=== PATIENT | male | born 1960 | race Asian ===

== ENCOUNTER 2019-10-07 18:01 | Observation (INO) | payer OTHER ==
[~2019-10-07] VITALS: Ht 182.9 cm; Wt 61.3 kg
[2019-10-07 18:17] VITALS: BP 133/95; TEMP 98.1
[2019-10-07] MEDS ORDERED: METO50TA27 PO (18:26)
[2019-10-07] MEDS ORDERED: AMLODIPINE BESYLATE PO (18:26)
[2019-10-07] MEDS ORDERED: OMEPRAZOLE40 MG PO (18:27)
[2019-10-07] MEDS ORDERED: GABA300C2 PO (18:28)
[2019-10-07] MEDS ORDERED: POTA10CA3 PO (18:28)
[2019-10-07 18:45] VITALS: BP 136/95
[2019-10-07 19:27] LABS: PLATELET COUNT 229 K/uL (142-355)
[2019-10-07 19:28] VITALS: BP 151/91
[2019-10-07 19:39] LABS: POTASSIUM 4.5 mmol/L (3.6-5.2)
[2019-10-07 20:00] VITALS: BP 153/96
[2019-10-07 21:00] VITALS: BP 134/89
[2019-10-07 21:57] VITALS: BP 138/89; TEMP 137.1; Ht 182.9 cm; Wt 61.3 kg
[2019-10-08] VITALS (7 sets, daily range): BP systolic 120–142; BP diastolic 79–88; TEMP 97.9–98.6
[2019-10-08 04:53] LABS: PLATELET COUNT 193 K/uL (142-355)
[2019-10-08 05:02] LABS: POTASSIUM 3.4 mmol/L (3.6-5.2)
[2019-10-09 04:00] VITALS: BP 114/77; TEMP 98.3
[2019-10-09 08:00] VITALS: BP 129/86; TEMP 98
--- NOTE | 2019-10-09 09:00 | NUR ---
PT'S DIET WAS ADVANCED TO REGULAR DIET. PT WAS CARRIED APPLE JUICE, CRACKERS, AND JELLO. PT WAS ALSO SERVED AND ATE BREAKFAST. NO C/O OF PAIN OR DISCOMFORT AFTER EATING. PT IS BEING DISCHARGED TO HOME. CALL LIGHT WITHIN REACH. WILL CONTINUE TO MONITOR
--- NOTE | 2019-10-09 10:00 | NUR ---
PT DISCHARGED TO HOME, AND TRANSPORTED VIA W/C TO VEHICLE, AND DRIVEN BY FRIEND. NO ACUTE DISTRESS NOTED.
== END 2019-10-09 09:49 | disposition home or self-care (01) ==
LOC: ED 18:01 → MED/SURG 21:14
PROVIDERS: Family Medicine; ADMIT Emergency Medicine Emergency Medical Services
DX: K85.20 Alcohol induced acute pancreatitis without necrosis or infection (principal); E87.6 Hypokalemia; D63.8 Anemia in other chronic diseases classified elsewhere; N40.0 Benign prostatic hyperplasia without lower urinary tract symptoms; K21.9 Gastro-esophageal reflux disease without esophagitis; I10 Essential (primary) hypertension; K86.0 Alcohol-induced chronic pancreatitis; K70.0 Alcoholic fatty liver; M87.851 Other osteonecrosis, right femur
CPT/HCPCS: 36415; 80053; 81000; 82150; 83690; 85027; 93005; 96360; 96365; 96366; 96375; 96376; 99220; 99284; G0378; J1885; J2175; J2405

== ENCOUNTER 2020-03-02 09:48 | Outpatient (CLI) | payer OTHER ==
[~2020-03-02 09:48] MED LIST: AMLODIPINE BESYLATE PO; GABA300C2 PO; METO50TA27 PO; OMEPRAZOLE40 MG PO; POTA10CA3 PO
== END 2020-03-02 20:09 | disposition home or self-care (01) ==
LOC: RAD 09:48
DX: M25.551 Pain in right hip (principal)

== ENCOUNTER 2020-03-20 10:18 | Outpatient (CLI) | payer OTHER | END 2020-03-20 22:05 | disposition home or self-care (01) | LOC: RAD 10:18 | DX: Z13.820 Encounter for screening for osteoporosis (principal) ==

== ENCOUNTER 2020-04-02 17:10 | Emergency (ER) | payer OTHER ==
[~2020-04-02] VITALS: Ht 182.9 cm; Wt 61.2 kg
[2020-04-02 18:57] LABS: PLATELET COUNT 160 K/uL (142-355)
[2020-04-02 18:59] LABS: POTASSIUM 3.2 mmol/L (3.6-5.2); SODIUM 140 mmol/L (136-145)
[2020-04-02 19:15] LABS: PARTIAL THROMBOPLASTIN TIME 26.5 SECONDS (24.5-33.6)
[2020-04-02 19:49] VITALS: BP 134/91; TEMP 98
== END 2020-04-02 19:54 | disposition home or self-care (01) ==
LOC: ED 17:10
PROVIDERS: Hospitalist
DX: Z03.818 Encounter for observation for suspected exposure to other biological agents ruled out (principal); J06.9 Acute upper respiratory infection, unspecified; E87.6 Hypokalemia; F17.210 Nicotine dependence, cigarettes, uncomplicated
CPT/HCPCS: 36415; 80053; 82550; 83880; 84484; 85027; 85610; 85730; 87502; 87635; 87651; 93005; 99283; U0002

== ENCOUNTER 2020-08-12 12:11 | Emergency (ER) | payer OTHER ==
[~2020-08-12] VITALS: Ht 182.9 cm; Wt 67.6 kg
[2020-08-12 12:14] VITALS: TEMP 98.5
[2020-08-12] MEDS ORDERED: CLOP75TA2 PO (13:00)
[2020-08-12] MEDS ORDERED: HYDR10TA47 PO (13:00)
[2020-08-12] MEDS ORDERED: NEURONTIN800 MG PO (13:01)
[2020-08-12] MEDS ORDERED: DULO60CA2 PO (13:01)
[2020-08-12] MEDS ORDERED: NUCYNTA ER150 MG (13:02)
[2020-08-12 13:15] LABS: PLATELET COUNT 250 K/uL (142-355)
[2020-08-12 13:21] LABS: POTASSIUM 3.3 mmol/L (3.6-5.2)
[2020-08-12 13:29] LABS: PARTIAL THROMBOPLASTIN TIME 24.7 SECONDS (24.5-33.6)
[2020-08-12 14:48] VITALS: BP 118/82
== END 2020-08-12 14:58 | disposition short-term general hospital (02) ==
LOC: ED 12:11
PROVIDERS: Emergency Medicine
DX: S72.145A Nondisplaced intertrochanteric fracture of left femur, initial encounter for closed fracture (principal); S42.255A Nondisplaced fracture of greater tuberosity of left humerus, initial encounter for closed fracture; W18.39XA Other fall on same level, initial encounter; Y92.098 Other place in other non-institutional residence as the place of occurrence of the external cause
CPT/HCPCS: 80053; 80320; 85027; 85610; 85730; 96374; 96375; 99284; J1885; J2175; J2405

== ENCOUNTER 2021-08-30 14:58 | Emergency (ER) | payer OTHER ==
[~2021-08-30] VITALS: Ht 182.9 cm; Wt 54.4 kg
[2021-08-30 14:58] VITALS: TEMP 97.9
[~2021-08-30 14:58] MED LIST changes: +CLOP75TA2 PO; +DULO60CA2 PO; +HYDR10TA47 PO; +NEURONTIN800 MG PO; +NUCYNTA ER150 MG
[2021-08-30 15:21] LABS: PLATELET COUNT 134 K/uL (142-355)
[2021-08-30 15:25] LABS: POTASSIUM 3.5 mmol/L (3.6-5.2)
[2021-08-30 15:30] LABS: PARTIAL THROMBOPLASTIN TIME 30.8 SECONDS (24.5-33.6)
[2021-08-30 18:28] VITALS: BP 101/66
== END 2021-08-30 19:03 | disposition home or self-care (01) ==
LOC: ED 14:58
PROVIDERS: Emergency Medicine
DX: M54.59 Other low back pain (principal); M79.604 Pain in right leg; R00.0 Tachycardia, unspecified; E86.0 Dehydration
CPT/HCPCS: 80053; 82550; 83880; 84484; 85007; 85027; 85610; 85730; 93005; 96360; 96375; 99284; J1885; J3490

== ENCOUNTER 2021-09-04 15:56 | Inpatient (IN) | payer OTHER ==
[~2021-09-04] VITALS: Ht 182.9 cm; Wt 67.8 kg
[2021-09-04] VITALS (10 sets, daily range): BP systolic 104–133; BP diastolic 77–88; TEMP 97.4
[2021-09-04 18:14] LABS: POTASSIUM 2.9 mmol/L (3.6-5.2)
[2021-09-04 18:27] LABS: PLATELET COUNT 70 K/uL (142-355)
[2021-09-04 18:51] LABS: PARTIAL THROMBOPLASTIN TIME 26.1 SECONDS (24.5-33.6)
[2021-09-05] VITALS (8 sets, daily range): BP systolic 107–137; BP diastolic 68–83; TEMP 97.5–98.8; Ht 182.9 cm; Wt 67.8 kg
[2021-09-05] MEDS ORDERED: POTASSIUM CHLO20 MEQ PO (03:43)
[2021-09-05] MEDS ORDERED: AMLODIPINE BESYLATE PO (03:45)
[2021-09-05] MEDS ORDERED: ASA LOW DOSE81 MG PO (03:47)
[2021-09-05] MEDS ORDERED: OMEP20CA PO (03:48)
[2021-09-05] MEDS ORDERED: METO50TA27 PO (03:49)
[2021-09-05 07:18] LABS: POTASSIUM 3.2 mmol/L (3.6-5.2)
[2021-09-06 05:53] LABS: PLATELET COUNT 152 K/uL (142-355)
[2021-09-06 05:55] LABS: POTASSIUM 4.4 mmol/L (3.6-5.2)
[2021-09-06 08:00] VITALS: BP 136/82; TEMP 98.1
[2021-09-06 12:00] VITALS: BP 133/85; TEMP 98.1
[2021-09-06 16:00] VITALS: BP 129/81; TEMP 98.4
[2021-09-06 20:00] VITALS: BP 117/67; TEMP 98.7
[2021-09-07 00:23] VITALS: BP 117/80; TEMP 98.2
[2021-09-07 04:00] VITALS: BP 135/84; TEMP 98.2
[2021-09-07 05:31] LABS: PLATELET COUNT 225 K/uL (142-355)
[2021-09-07 05:40] LABS: POTASSIUM 3.9 mmol/L (3.6-5.2)
[2021-09-07 08:00] VITALS: BP 134/82; TEMP 97.7
[2021-09-07 12:00] VITALS: BP 138/84; TEMP 98.1
[2021-09-07 16:00] VITALS: BP 129/81; TEMP 98.1
[2021-09-07 20:00] VITALS: BP 145/78; TEMP 97.4
[2021-09-08] VITALS (7 sets, daily range): BP systolic 124–1189; BP diastolic 71–81; TEMP 97.7–98.6
[2021-09-08 05:45] LABS: PLATELET COUNT 335 K/uL (142-355)
[2021-09-08 05:58] LABS: POTASSIUM 3.8 mmol/L (3.6-5.2)
[2021-09-09 03:46] VITALS: BP 129/79; TEMP 98.2
[2021-09-09 04:50] LABS: PLATELET COUNT 480 K/uL (142-355)
[2021-09-09 05:01] LABS: POTASSIUM 4.1 mmol/L (3.6-5.2)
[2021-09-09 08:00] VITALS: BP 151/92; TEMP 99.9
[2021-09-09 12:02] VITALS: BP 128/84; TEMP 98.4
[2021-09-09] MEDS ORDERED: FURO40TA93 PO (13:11)
[2021-09-09 16:02] VITALS: BP 138/83; TEMP 98.3
[2021-09-09 20:14] VITALS: BP 150/66; TEMP 98.8
[2021-09-10] VITALS (7 sets, daily range): BP systolic 122–156; BP diastolic 68–86; TEMP 97.5–99.1
[2021-09-10 05:20] LABS: PLATELET COUNT 630 K/uL (142-355)
[2021-09-10 05:43] LABS: POTASSIUM 3.8 mmol/L (3.6-5.2)
[2021-09-11] VITALS: BP 137/81; TEMP 98.6
[2021-09-11 04:00] VITALS: BP 134/79; TEMP 98.7
[2021-09-11 08:02] VITALS: BP 116/72; TEMP 97.9
[2021-09-11 12:02] VITALS: BP 118/79; TEMP 98.7
[2021-09-11 16:02] VITALS: BP 132/76; TEMP 98.7
[2021-09-11 20:22] VITALS: BP 125/78; TEMP 98.5
[2021-09-12] VITALS (9 sets, daily range): BP systolic 129–140; BP diastolic 68–84; TEMP 98.5–100.3
[2021-09-12 03:23] LABS: PLATELET COUNT 653 K/uL (142-355)
[2021-09-12 03:24] LABS: POTASSIUM 3.2 mmol/L (3.6-5.2)
[2021-09-13] VITALS (7 sets, daily range): BP systolic 132–148; BP diastolic 77–84; TEMP 98.3–98.9
[2021-09-13 05:26] LABS: PLATELET COUNT 538 K/uL (142-355)
[2021-09-13 05:40] LABS: POTASSIUM 3.5 mmol/L (3.6-5.2)
== END 2021-09-13 15:08 | disposition short-term general hospital (02) | DRG 540 ==
LOC: ED 15:56 → MED/SURG 23:50
PROVIDERS: Internal Medicine; ADMIT Family Medicine; ATTEND Internal Medicine Endocrinology, Diabetes & Metabolism
PROC: 30233N1 Transfusion of Nonautologous Red Blood Cells into Peripheral Vein, Percutaneous Approach (ICD-10-PCS; principal; 2021-09-12)
PROC: 30233N1 Transfusion of Nonautologous Red Blood Cells into Peripheral Vein, Percutaneous Approach (ICD-10-PCS; 2021-09-13)
DX: M86.151 Other acute osteomyelitis, right femur (principal); N39.0 Urinary tract infection, site not specified; E46 Unspecified protein-calorie malnutrition; B37.89 Other sites of candidiasis; M87.851 Other osteonecrosis, right femur; B96.20 Unspecified Escherichia coli [E. coli] as the cause of diseases classified elsewhere; K21.9 Gastro-esophageal reflux disease without esophagitis; I10 Essential (primary) hypertension; E87.6 Hypokalemia; R94.5 Abnormal results of liver function studies; Z72.0 Tobacco use; F10.10 Alcohol abuse, uncomplicated; N40.0 Benign prostatic hyperplasia without lower urinary tract symptoms; R73.9 Hyperglycemia, unspecified; D50.8 Other iron deficiency anemias; R13.19 Other dysphagia
CPT/HCPCS: 36415; 80048; 80053; 80202; 81000; 82272; 82550; 82607; 82728; 82746; 83540; 83550; 83735; 84484; 85007; 85027; 85379; 85610; 85730; 86850; 86900; 86901; 86922; 87040; 87077; 87086; 87088; 87186; 87635; 93005; 94640; 94664; 94760; 96360; 96365; 96366; 96372; 96375; 99284; J0132; J0696; J1170; J1650; J1885; J1956; J2185; J2270; J3370; J3475; J3490; P9016; Q9963; U0003